=== PATIENT | male | born 1950 | race Caucasian/White ===

== ENCOUNTER 2020-11-17 16:25 | Inpatient (IN) ==
[2020-11-17] MEDS ORDERED: Isovue-370 500 ML BOTTLE IVP ONE (17:44)
[2020-11-17 18:10] LABS: Basophils # 0.1 K/mcL (0.0-0.2); Basophils % 0.6 %; Eosinophils # 0.3 K/mcL (0.0-0.6); Eosinophils % 3.2 %; Hematocrit 37.7 % (37.5-50.1); Hemoglobin 11.6 g/dL (12.9-16.9); Immature Granulocytes % 0.7 % (0-4); Lymphocytes # 1.5 K/mcL (0.6-4.6); Lymphocytes % 17.4 %; Mean Corpuscular HGB Conc 30.8 g/dL (31.6-35.5); Mean Corpuscular Volume 84.5 fL (83.0-100.0); Mean Platelet Volume 10.5 fL (9.4-12.4); Monocytes # 0.7 K/mcL (0.0-1.3); Neutrophils # 6.2 K/mcL (1.6-8.9); Platelet Count 226 K/mcL (140-400); Red Blood Count 4.46 M/mcL (4.19-5.50); Red Cell Distribution Width 15.5 % (11.5-14.5); Segmented Neutrophils % 70.1 %; White Blood Count 8.8 K/mcL (4.3-11.1)
[2020-11-17 18:26] LABS: BUN/Creatinine Ratio 19 (6-26); Blood Urea Nitrogen 21 mg/dL (8-23); C-Reactive Protein 62 mg/L (Less than 10); Calcium 9.1 mg/dL (8.6-10.3); Carbon Dioxide 29 mEq/L (23-29); Chloride 99 mEq/L (98-107); Glucose 224 mg/dL (70-105); Osmolality,Calculated 294 (280-300); Potassium 3.9 mEq/L (3.5-5.1); Sodium 137 mEq/L (136-145); eGFR For African Americans > 60 (> 60); eGFR For Non-African Americans > 60 (> 60)
[2020-11-17] MEDS ORDERED: Vancomycin 1,500 MG/265 ML IV.SOLN IVPB ONE (19:40)
[2020-11-17] MEDS ORDERED: Piperacillin/Tazobactam 3.375 GM in 0.9 % Sodium Chloride Mini Bag 100 ML IVPB ONE (19:40)
[2020-11-17] MEDS ORDERED: Melatonin 3 MG TABLET PO PRN (20:53)
[2020-11-17] MEDS ORDERED: Naloxone 0.4 MG/ML INJ IVP PRN (20:53)
[2020-11-17] MEDS ORDERED: *HR* HYDROcodone/Acet 5/325 mg TABLET PO PRN (20:53)
[2020-11-17] MEDS ORDERED: Ondansetron 4 MG/2 ML VIAL IVP PRN (20:53)
[2020-11-17] MEDS ORDERED: *HR* OxyCODONE Immed Rel 5 MG TABLET PO PRN (20:53)
[2020-11-17] MEDS ORDERED: Dextrose Gel 15 GM/37.5 ML TUBE PO PRN ×2 (20:55)
[2020-11-17] MEDS ORDERED: *HR* Dextrose 50 % in Water (Vial) 50 ML VIAL IVP PRN (20:55)
[2020-11-17] MEDS ORDERED: D5% in Water 1,000 ML IVC PRN (20:55)
[2020-11-17] MEDS: Ringers Solution, Lactated 1,000 ML IVC SCH (23:10)
[2020-11-17] MEDS: Aspirin Enteric Coated 81 MG Tablet PO SCH (23:10)
[2020-11-18] MEDS: Insulin LISPRO 300 UNITS/3 ML VIAL SUBQ SCH ×4 (00:21→17:00)
[2020-11-18 04:45] LABS: Basophils % 0.7 %; Eosinophils # 0.3 K/mcL (0.0-0.6); Eosinophils % 4.8 %; Hematocrit 36.1 % (37.5-50.1); Immature Granulocytes % 0.5 % (0-4); Lymphocytes % 16.6 %; Mean Corpuscular HGB Conc 30.5 g/dL (31.6-35.5); Mean Corpuscular Hemoglobin 25.6 pg (28.0-33.3); Monocytes # 0.6 K/mcL (0.0-1.3); Monocytes % 10.1 %; Neutrophils # 4.1 K/mcL (1.6-8.9); Platelet Count 209 K/mcL (140-400); Red Cell Distribution Width 15.2 % (11.5-14.5); Segmented Neutrophils % 67.3 %
[2020-11-18 04:55] LABS: BUN/Creatinine Ratio 19 (6-26); Blood Urea Nitrogen 18 mg/dL (8-23); Carbon Dioxide 31 mEq/L (23-29); Chloride 103 mEq/L (98-107); Glucose 136 mg/dL (70-105); Osmolality,Calculated 294 (280-300); Sodium 140 mEq/L (136-145); eGFR For African Americans > 60 (> 60); eGFR For Non-African Americans > 60 (> 60)
[2020-11-18 04:57] LABS: INR 1.2; Prothrombin Time 13.3 Seconds (9.4-12.1)
[2020-11-18] MEDS: Ringers Solution, Lactated 1,000 ML IVC SCH (07:41)
[2020-11-18] MEDS: Acetaminophen 325 MG TABLET PO PRN ×2 (12:51→23:52)
[2020-11-18 13:10] LABS: Estimated Average Glucose 171 mg/dl; Hemoglobin A1C 7.6 %
[2020-11-18] MEDS: Vancomycin 1,250 MG/262.5 ML IV.SOLN IVPB SCH (15:37)
[2020-11-18] MEDS: Piperacillin/Tazobactam 3.375 GM in 0.9 % Sodium Chloride Mini Bag 100 ML IVPB SCH ×2 (15:45→23:46)
[2020-11-18] MEDS: *HR* Heparin 5,000 UNIT/ML VIAL SQ SCH (16:38)
[2020-11-18] MEDS: PARoxetine 20 MG TABLET PO SCH (16:39)
[2020-11-18] MEDS: Aspirin Enteric Coated 81 MG Tablet PO SCH (22:35)
[2020-11-19] MEDS: Insulin LISPRO 300 UNITS/3 ML VIAL SUBQ SCH ×4 (00:01→18:10)
[2020-11-19] MEDS: Vancomycin 1,250 MG/262.5 ML IV.SOLN IVPB SCH ×2 (02:29→14:31)
[2020-11-19] MEDS: *HR* Heparin 5,000 UNIT/ML VIAL SQ SCH ×2 (03:12→18:10)
[2020-11-19] MEDS: Piperacillin/Tazobactam 3.375 GM in 0.9 % Sodium Chloride Mini Bag 100 ML IVPB SCH ×2 (07:56→16:37)
[2020-11-19] MEDS: PARoxetine 20 MG TABLET PO SCH (07:56)
[2020-11-19] MEDS ORDERED: *HR* Labetalol 20 MG/4 ML SYRINGE IVP PRN ×2 (16:04→20:39)
[2020-11-19] MEDS ORDERED: *HR* OxyCODONE Immed Rel 5 MG TABLET PO PRN ×3 (16:04→20:39)
[2020-11-19] MEDS ORDERED: *HR* HYDROmorphone (PF) 1 MG/ML SYRINGE IVP PRN ×2 (16:04→20:39)
[2020-11-19] MEDS ORDERED: Famotidine 20 MG/2 ML VIAL IVP ONE ×2 (16:04→20:39)
[2020-11-19] MEDS ORDERED: Acetaminophen IV 1,000 MG/100 ML BAG IVPB ONE ×2 (16:04→20:39)
[2020-11-19] MEDS ORDERED: Lidocaine -MPF 2% 2 ML VIAL ONE (17:36)
[2020-11-19] MEDS ORDERED: *HR* Propofol 200 MG/20 ML VIAL IVP ONE (17:38)
[2020-11-19] MEDS ORDERED: Bupivacaine/Clonidine Syringe 20 ML, Syringe LUER-LOK 1 EACH TP ONE (17:40)
[2020-11-19] MEDS ORDERED: ROPIVACAINE/PF/NS 0.25% 1 EACH SYRINGE INTRAART ONE (18:51)
[2020-11-19] MEDS ORDERED: Ondansetron 4 MG/2 ML VIAL IVP PRN (20:39)
[2020-11-19] MEDS ORDERED: *HR* HYDROcodone/Acet 5/325 mg TABLET PO PRN (20:39)
[2020-11-19] MEDS ORDERED: *HR* Dextrose 50 % in Water (Vial) 50 ML VIAL IVP PRN (20:39)
[2020-11-19] MEDS ORDERED: Acetaminophen 325 MG TABLET PO PRN (20:39)
[2020-11-19] MEDS ORDERED: Dextrose Gel 15 GM/37.5 ML TUBE PO PRN ×2 (20:39)
[2020-11-19] MEDS ORDERED: Aspirin Enteric Coated 81 MG Tablet PO SCH (20:39)
[2020-11-19] MEDS ORDERED: Melatonin 3 MG TABLET PO PRN (20:39)
[2020-11-19] MEDS ORDERED: Naloxone 0.4 MG/ML INJ IVP PRN (20:39)
[2020-11-19] MEDS ORDERED: D5% in Water 1,000 ML IVC PRN (20:39)
[2020-11-20] MEDS: Piperacillin/Tazobactam 3.375 GM in 0.9 % Sodium Chloride Mini Bag 100 ML IVPB SCH ×2 (00:13→08:31)
[2020-11-20] MEDS: Insulin LISPRO 300 UNITS/3 ML VIAL SUBQ SCH ×2 (00:14→07:09)
[2020-11-20 01:46] LABS: Hematocrit 34.4 % (37.5-50.1); Mean Corpuscular Hemoglobin 26.3 pg (28.0-33.3); Mean Corpuscular Volume 82.3 fL (83.0-100.0); Mean Platelet Volume 10.3 fL (9.4-12.4); Platelet Count 207 K/mcL (140-400); Red Blood Count 4.18 M/mcL (4.19-5.50); White Blood Count 6.1 K/mcL (4.3-11.1)
[2020-11-20 02:04] LABS: BUN/Creatinine Ratio 17 (6-26); Blood Urea Nitrogen 16 mg/dL (8-23); Calcium 8.6 mg/dL (8.6-10.3); Carbon Dioxide 23 mEq/L (23-29); Chloride 108 mEq/L (98-107); Glucose 210 mg/dL (70-105); Osmolality,Calculated 295 (280-300); Potassium 3.6 mEq/L (3.5-5.1); Sodium 139 mEq/L (136-145); eGFR For African Americans > 60 (> 60); eGFR For Non-African Americans > 60 (> 60)
[2020-11-20] MEDS ORDERED: Vancomycin 1,250 MG/262.5 ML IV.SOLN IVPB SCH (03:00)
[2020-11-20] MEDS ORDERED: *HR* Heparin 5,000 UNIT/ML VIAL SQ SCH (06:00)
[2020-11-20] MEDS ORDERED: Insulin LISPRO 300 UNITS/3 ML VIAL SUBQ SCH ×2 (07:30→21:00)
[2020-11-20 08:23] VITALS: BP 160/88; PULSE 71; TEMP 98.4; O2SAT 94
[2020-11-20] MEDS ORDERED: 0.9 % Sodium Chloride Mini Bag 100 ML ONE (08:25)
[2020-11-20] MEDS ORDERED: PARoxetine 20 MG TABLET PO SCH (09:00)
== END 2020-11-20 13:48 | disposition home or self-care (01) | DRG 623 ==
LOC: EMEROOARM 16:25 → 3ANU 16:25 → SUATTDRO 20:34 → 3ANU 21:40 → 3BNU 22:15
PROVIDERS: ADMIT Internal Medicine; ATTEND Internal Medicine